=== PATIENT | female | born 1955 | race American Indian/Alaskan Native ===

== ENCOUNTER 2018-01-14 10:11 | Emergency (ER) | payer MEDICARE ==
[2018-01-14 10:28] LABS: Mean Corpuscular HGB Conc 26 % (30-34); Mean Corpuscular Volume 91 fl (79-97); Platelet Count 184 K/mm3 (140-440); Red Blood Count 2.73 M/mm3 (3.65-5.03)
[2018-01-14] MEDS ORDERED: NACL 0.9% 1000 ML 1,000 ML IV ONE ×3 (10:28→12:55)
[2018-01-14] MEDS ORDERED: APRESOLINE IV ONE (10:28)
--- NOTE | 2018-01-14 10:29 | Emergency Department Report ---
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 Per the patient's and son, the patient has experienced gastroenteritis-like symptoms for the past 2-3 days, including multiple episodes of, nausea, vomiting, and diarrhea. They stated that approximately 30 minutes prior to arrival the patient developed change in mental status from baseline and passed out. ED Past Medical Hx - Past Medical History Hx Hypertension: Yes (out of lisinopril 10 mg for one week) Hx CVA: Yes (12/2014 with left-sided weakness) Hx Congestive Heart Failure: No Hx Diabetes: Yes Hx Deep Vein Thrombosis: Yes Hx Seizures: Yes Hx Asthma: Yes Hx COPD: Yes - Surgical History Additional Surgical History: fibroid removed, brain surgery, metal plate in R arm, hysterectomy - Social History Smoking Status: Never Smoker Substance Use Type: Alcohol - Medications Home Medications: Home Medications Medication Instructions Recorded Confirmed Last Taken Type Insulin Regular, Human [HumuLIN R] 5 units SUB-Q ACHS 30 Days units 01/19/15 Unknown Rx Magnesium Oxide [Mag-Ox] 400 mg PO QDAY #30 tablet 01/19/15 10/19/15 Unknown Rx Lisinopril [Zestril TAB] 20 mg PO QDAY #60 tablet 10/19/15 Unknown Rx Hydrochlorothiazide [HCTZ] 25 mg PO QDAY #30 tablet 02/29/16 Unknown Rx Lisinopril [Zestril TAB] 10 mg PO QDAY #30 tablet 02/29/16 Unknown Rx Magnesium Oxide [Mag-Ox] 400 mg PO QDAY #7 tablet 02/29/16 Unknown Rx Potassium Chloride 20 meq PO QDAY #7 tablet.er 02/29/16 Unknown Rx amLODIPine [Norvasc] 5 mg PO DAILY #30 tab 02/29/16 Unknown Rx glipiZIDE [glipiZIDE ER] 5 mg PO QAM #30 tab.er.24 02/29/16 Unknown Rx levETIRAcetam [Keppra TAB] 250 mg PO DAILY #30 tablet 02/29/16 Unknown Rx ED Review of Systems ROS: Stated complaint: UNRESPONSIVE Other details as noted in HPI Comment: Unobtainable due to pts medical conditions Physical Exam - Physical Exam Physical Exam: General: poorly-nourished, well-developed Head: Normocephalic, atraumatic Eyes: normal sclera, left gave deviation, pupils equal, round, reactive to light ENT: Mucous membranes are pale and dry, gag reflex is intact Neck: trachea midline, neck supple, No neck stiffness, no cervical adenopathy Respiratory: Breath sounds equal bilaterally, no wheezing, rales, or rhonchi Cardio: S1 and S2 present, no murmurs, rubs, gallops, capillary refill is delayed Abdomen: Normoactive bowel sounds, soft abdomen, no rigidity or distension Chest WALL/Back: No tenderness to palpation of the chest wall, no CVA tenderness with percussion Musc: No pitting edema Skin: No rash Neuro: rt lower facial drooping, moaning, deviation of head to left, unable to assess sensation, reflexes 2+ and symmetric on DTR testing, spontaneously moving bilateral upper extremities, fingers and hands flexed Heme/lymph: no lymph node swelling ED Medical Decision Making - Lab Data Result diagrams: 01/14/18 10:11 01/14/18 11:06 - Medical Decision Making The patient was seen and examined by myself. The patient is placed on a cardiac technologist and continuous pulse ox. On initial evaluation, the patient was found to have decreased responsiveness, although responsive to painful stimuli, gave reflex intact, with left-sided gaze deviation, and significantly elevated blood pressure and heart rate. Evaluation orders were placed and the patient is given IV hydralazine for her elevated blood pressure and a normal saline fluid bolus for treatment of dehydration, hyperglycemia, and tachycardia. On return from CAT scan the patient's found to have twitching of the face and deviation of the head to the left, concerning for acute seizure. The patient is given 0.5 mg of Ativan and the patient's seizure-like activity promptly resolved. CT scan the head was negative for acute intracranial hemorrhage. As patient has a history of brain bleed, and recent hematemesis, the patient is not a candidate for TPA administration. Lab results reveal a pH of 7.14, anion gap of 16, low bicarbonate, WBC 19, lactic acid 15, hemoglobin 6.4, creatinine 2.5, potassium of 5, and glucose of 750. Lab results are consistent with DKA versus nonketotic hyperosmolar syndrome. The patient is administered IV Zosyn for coverage of potential infectious etiology, and insulin drip for treatment of hyperglycemia. On reevaluation patient's found to be hypotensive. Multiple fluid boluses are administered and multiple bedside assessments are performed to assess patient's responsiveness to fluids resuscitation. Plan to place a central line and start the patient on IV vasopressin. The family opted to make patient DNR. The on-call hospitalist service was contacted. They agreed to admit the patient for further treatment and close monitoring. The ED admit order was placed. The patient was admitted in guarded condition. Critical Care Time: Yes Critical care time in (mins) excluding proc time.: 35 Critical care attestation.: Due to the critical nature of this patients presentation, which necessitated multiple bedside assessments, manipulation and supportive measures to prevent further life threatening deterioration, I would like to bill for a total of 35 minutes of critical care time. This was exclusive of any separately billable procedures. Critical Care Time: 35 min ED Disposition Clinical Impression: Dehydration, Acute hyperkalemia, Seizure, Anemia requiring transfusions, Severe anemia, DARIN (acute kidney injury) Altered mental status Qualifiers: Altered mental status type: somnolence Qualified Code(s): R40.0 - Somnolence DKA (diabetic ketoacidoses) Qualifiers: Diabetes mellitus type: type 2 Diabetes mellitus complication detail: without coma Qualified Code(s): E11.10 - Type 2 diabetes mellitus with ketoacidosis without coma Disposition: OP ADMIT IP TO THIS HOSP Is pt being admited?: Yes Does the pt Need Aspirin: No (probable GI bleed & severe anemia) Condition: Critical Instructions: Diabetic Ketoacidosis (ED) Referrals: PRIMARY CARE, [Primary Care Provider] - 3-5 Days Time of Disposition: 11:32 - Assessment Assessment Interval: Baseline - Level of Consciousness 1a. Level of Consciousness: not alert, rep stimuli - LOC Questions 1b. LOC Questions: answers no questions correctly - LOC Command 1c. LOC Commands: performs no tasks correctly - Best Gaze 2. Best Gaze: forced deviation - Visual 3. Visual: no visual loss - Facial Palsy 4. Facial Palsy: partial paralysis - Motor Arm 5b. Motor Arm Right: no movement 5a. Motor Arm Left: no movement - Motor Leg 6a. Motor Leg Left: no movement 6b. Motor Leg Right: no movement - Limb Ataxia 7. Limb Ataxia: present 2 limbs - Sensory 8. Sensory: severe/total sensory loss - Best Language 9. Best Language: mute/global aphasia - Dysarthria 10. Dysarthria: intubated or other barrier - Extinction and Inattention 11. Extinction/Inattention: profound inattention
[2018-01-14 10:30] LABS: Hematocrit 24.9 % (30.3-42.9); Hemoglobin 6.4 gm/dl (10.1-14.3); Mean Corpuscular Hemoglobin 23 pg (28-32); Red Cell Distribution Width 20.2 % (13.2-15.2)
[2018-01-14 10:32] LABS: INR 2.02 (0.87-1.13)
[2018-01-14 10:34] LABS: Calcium 10.7 mg/dL (8.4-10.2)
[2018-01-14] MEDS ORDERED: ATIVAN ONE (10:50)
[2018-01-14] MEDS ORDERED: KEPPRA 1,000 MG/NS 0.75% 100ML 1,000 MG/100 ML BAG IV ONE ×2 (10:56→11:02)
--- NOTE | 2018-01-14 10:56 | Cat Scan Report ---
FINAL REPORT EXAM: CT HEAD/BRAIN WO CON HISTORY: neuro deficits < 6hrs or sx present upon awakening TECHNIQUE: CT of the Head without IV contrast. PRIORS: CT head February 29, 2016. FINDINGS: Ill-defined area decreased attenuation in the left frontal parietal lobe along the MCA distribution suggests acute/subacute ischemia. Other areas of more well-defined decreased attenuation may represent smaller chronic ischemia. No dense MCA sign identified. Small chronic ischemic changes in both basal ganglias. There is no hemorrhage. There is no midline shift. There is no hydrocephalus. There is no mass. Age appropriate white-white matter attenuation is noted. There is no calvarial fracture. Left calvarial craniotomy, calvarial plates, and lita holes identified. The temporal bones demonstrate aerated mastoid air cells. The middle ears appear unremarkable. Paranasal sinuses are unremarkable. Globes are intact. IMPRESSION: Suspect acute and subacute ischemia in the left MCA territory. Further imaging with MRI with or without contrast may be helpful clinically indicated. Chronic ischemic disease January 14, 2018 at 0750 PST: I discussed the findings over phone with Dr. Urias.
[2018-01-14 10:57] LABS: Chol/HDL Ratio 4.69 %
[2018-01-14] MEDS ORDERED: ATIVAN IV ONE (11:01)
[2018-01-14] MEDS ORDERED: SODIUM BICARBONATE IV ONE ×2 (11:02→12:00)
[2018-01-14] MEDS ORDERED: D50W (25GM) Syringe IV PRN (11:03)
[2018-01-14 11:12] LABS: Albumin 2.9 g/dL (3.9-5); Bilirubin,Direct 0.3 mg/dL (0-0.2)
[2018-01-14] MEDS ORDERED: NACL 0.9% 500 ML 500 ML IV ONE (11:35)
[2018-01-14 11:37] LABS: Calcium 9.4 mg/dL (8.4-10.2)
[2018-01-14 11:42] LABS: Basophils % (Manual) 0 % (0.0-1.8); Eosinophils % (Manual) 0 % (0.0-4.3); Total Cells Counted 100
[2018-01-14 11:43] LABS: Anisocytosis 1+; Hypochromasia 1+
[2018-01-14 11:50] LABS: Bacteria,Urine 1+ /HPF (Negative); Bilirubin,Urine NEG (Negative); Blood,Urine SM (Negative); Color,Urine Yellow (Yellow); Mucus,Urine FEW /HPF; Protein,Urine <15 mg/dL mg/dL (Negative); Urobilinogen,Urine < 2.0 mg/dL (<2.0)
[2018-01-14] MEDS ORDERED: PROTONIX 80 MG in NACL 0.9% 100 ML IV SCH (12:00)
[2018-01-14] MEDS ORDERED: NovoLIN R 100 UNITS in NACL 0.9% 99 ML IV SCH (12:00)
[2018-01-14] MEDS ORDERED: PROTONIX IV ONE (12:00)
[2018-01-14] MEDS ORDERED: NS/KCL 20MEQ 20 MEQ/1,000 ML BAG IV SCH (12:00)
--- NOTE | 2018-01-14 12:49 | XRay Report ---
AP CHEST: HISTORY: chest pain AP view of the chest demonstrates a normal mediastinal and cardiac contour with clear lungs and normal bony and soft tissue structures. IMPRESSION: Unremarkable AP chest.
--- NOTE | 2018-01-14 12:52 | History and Physical Report ---
History of Present Illness Chief complaint: She wont wake up History of present illness: 62 YO Female with HTN, CVA LHP, DM, DVT on therapeutic anticoagulation, Seizure Disorder, DM, Asthma, COPD presents to ED for evaluation. Pt is stuporous and unable to provide history. Pt history taken from , who is at bedside during exam and interview. As per , the patient has experienced gastroenteritis-like symptoms for the past 2-3 days, including multiple episodes of, nausea, vomiting, and diarrhea. In addition, the patient has become increasingly confused over the past 1 day, and subsequently passed out. No reports of fever, chills, CP, Palpitations, Trauma, or recent ill contacts. EMS noticied and patient transported to [facility] for evaluation. Pt seen and evaluated in ED and found to have septic shock, DKA with sever metabolic acidosis, complicated by acute renal failure. Pt found to have poor prognosis, and was pending intubation for acute respiratory failure. Pt was initially admitted to ICU. Pt family informed of poor prognosis. Pt family elects to make patient DNR . Hospice consulted. Past History Past Medical History: COPD, diabetes, DVT, hypertension, seizures, stroke Past Surgical History: hysterectomy, Other (brain surgery, fibroid) Social history: single. denies: smoking, alcohol abuse, prescription drug abuse Family history: diabetes, hypertension Medications and Allergies Allergies Allergy/AdvReac Type Severity Reaction Status Date / Time codeine AdvReac Vomiting Verified 01/14/18 14:09 Home Medications Medication Instructions Recorded Confirmed Last Taken Type Insulin Regular, Human [HumuLIN R] 5 units SUB-Q ACHS 30 Days units 01/19/15 Unknown Rx Magnesium Oxide [Mag-Ox] 400 mg PO QDAY #30 tablet 01/19/15 10/19/15 Unknown Rx Lisinopril [Zestril TAB] 20 mg PO QDAY #60 tablet 10/19/15 Unknown Rx Hydrochlorothiazide [HCTZ] 25 mg PO QDAY #30 tablet 02/29/16 Unknown Rx Lisinopril [Zestril TAB] 10 mg PO QDAY #30 tablet 02/29/16 Unknown Rx Magnesium Oxide [Mag-Ox] 400 mg PO QDAY #7 tablet 02/29/16 Unknown Rx Potassium Chloride 20 meq PO QDAY #7 tablet.er 02/29/16 Unknown Rx amLODIPine [Norvasc] 5 mg PO DAILY #30 tab 02/29/16 Unknown Rx glipiZIDE [glipiZIDE ER] 5 mg PO QAM #30 tab.er.24 02/29/16 Unknown Rx levETIRAcetam [Keppra TAB] 250 mg PO DAILY #30 tablet 02/29/16 Unknown Rx Active Meds: Active Medications Dextrose (D50w (25gm) Syringe) 0 ml IV PRN PRN PRN Reason: Hypoglycemia Insulin Human Regular 100 (units/ Sodium Chloride) 100 mls @ 1 mls/hr IV TITR CECI; Protocol Pantoprazole Sodium 80 mg/ (Sodium Chloride) 100 mls @ 10 mls/hr IV Q10H CECI Potassium Chloride/Sodium Chloride (Ns/Kcl 20meq) 20 meq in 1,000 mls @ 150 mls /hr IV DIRECT CECI Review of Systems ROS unobtainable: due to mental status Exam - Constitutional Vitals: Temp Pulse Resp BP Pulse Ox 82 12 71/43 100 01/14/18 12:30 01/14/18 12:30 01/14/18 12:30 01/14/18 12:30 General appearance: Present: severe distress - EENT Eyes: Present: miosis ENT: no poor dentition - Neck Neck: Present: supple, normal ROM - Respiratory Respiratory effort: labored Respiratory: bilateral: diminished - Cardiovascular Heart Sounds: Present: S1 & S2. Absent: rub, click - Extremities Extremities: pulses symmetrical, No edema Peripheral Pulses: abnormal (capillary refill greater than 3.6 seconds) - Abdominal General gastrointestinal: Present: soft, non-tender, non-distended, normal bowel sounds Female genitourinary: Present: normal - Integumentary Integumentary: Present: clear, dry, clammy - Musculoskeletal Musculoskeletal: generalized weakness - Psychiatric Psychiatric: no intact judgment & insight, no memory intact - Neurologic Neurologic: focal deficits, no gait normal Results - Labs CBC & Chem 7: 01/14/18 10:11 01/14/18 12:59 Labs: Abnormal lab results 01/14/18 01/14/18 01/14/18 Range/Units 10:11 10:11 10:11 WBC 19.0 H (4.5-11.0) K/mm3 RBC 2.73 L (3.65-5.03) M/mm3 Hgb 6.4 L (10.1-14.3) gm/dl Hct 24.9 L (30.3-42.9) % MCH 23 L (28-32) pg MCHC 26 L (30-34) % RDW 20.2 H (13.2-15.2) % Lymphocytes % (Manual) 51.0 H (13.4-35.0) % Seg Neutrophils # Man 8.6 H (1.8-7.7) K/mm3 Lymphocytes # (Manual) 9.7 H (1.2-5.4) K/mm3 PT 24.2 H (12.2-14.9) Sec. INR 2.02 H (0.87-1.13) Thrombin Time (15.1-19.6) Sec. POC ABG pH (7.35-7.45) POC ABG pCO2 (35-45) POC ABG pO2 (80-105) Sodium 131 L (137-145) mmol/L Potassium (3.6-5.0) mmol/L Chloride 67.5 L (98-107) mmol/L Carbon Dioxide 7 L* (22-30) mmol/L BUN 45 H (7-17) mg/dL Creatinine 2.6 H (0.7-1.2) mg/dL Glucose 749 H* (65-100) mg/dL Lactic Acid (0.7-2.0) mmol/L Calcium 10.7 H (8.4-10.2) mg/dL Phosphorus (2.5-4.5) mg/dL Magnesium (1.7-2.3) mg/dL Direct Bilirubin (0-0.2) mg/dL AST (5-40) units/L Troponin T 0.063 H (0.00-0.029) ng/mL Albumin (3.9-5) g/dL HDL Cholesterol 23 L (40-59) mg/dL Lipase (13-60) units/L Crossmatch 01/14/18 01/14/18 01/14/18 Range/Units 10:11 10:11 10:26 WBC (4.5-11.0) K/mm3 RBC (3.65-5.03) M/mm3 Hgb (10.1-14.3) gm/dl Hct (30.3-42.9) % MCH (28-32) pg MCHC (30-34) % RDW (13.2-15.2) % Lymphocytes % (Manual) (13.4-35.0) % Seg Neutrophils # Man (1.8-7.7) K/mm3 Lymphocytes # (Manual) (1.2-5.4) K/mm3 PT (12.2-14.9) Sec. INR (0.87-1.13) Thrombin Time 23.6 H (15.1-19.6) Sec. POC ABG pH 7.146 L (7.35-7.45) POC ABG pCO2 16.2 L (35-45) POC ABG pO2 290 H (80-105) Sodium (137-145) mmol/L Potassium (3.6-5.0) mmol/L Chloride (98-107) mmol/L Carbon Dioxide (22-30) mmol/L BUN (7-17) mg/dL Creatinine (0.7-1.2) mg/dL Glucose (65-100) mg/dL Lactic Acid (0.7-2.0) mmol/L Calcium (8.4-10.2) mg/dL Phosphorus (2.5-4.5) mg/dL Magnesium (1.7-2.3) mg/dL Direct Bilirubin 0.3 H (0-0.2) mg/dL AST 83 H (5-40) units/L Troponin T (0.00-0.029) ng/mL Albumin 2.9 L (3.9-5) g/dL HDL Cholesterol (40-59) mg/dL Lipase 111 H (13-60) units/L Crossmatch 01/14/18 01/14/18 01/14/18 Range/Units 10:42 11:06 11:06 WBC (4.5-11.0) K/mm3 RBC (3.65-5.03) M/mm3 Hgb (10.1-14.3) gm/dl Hct (30.3-42.9) % MCH (28-32) pg MCHC (30-34) % RDW (13.2-15.2) % Lymphocytes % (Manual) (13.4-35.0) % Seg Neutrophils # Man (1.8-7.7) K/mm3 Lymphocytes # (Manual) (1.2-5.4) K/mm3 PT (12.2-14.9) Sec. INR (0.87-1.13) Thrombin Time (15.1-19.6) Sec. POC ABG pH (7.35-7.45) POC ABG pCO2 (35-45) POC ABG pO2 (80-105) Sodium (137-145) mmol/L Potassium (3.6-5.0) mmol/L Chloride (98-107) mmol/L Carbon Dioxide (22-30) mmol/L BUN (7-17) mg/dL Creatinine (0.7-1.2) mg/dL Glucose (65-100) mg/dL Lactic Acid 15.50 H* (0.7-2.0) mmol/L Calcium (8.4-10.2) mg/dL Phosphorus 6.70 H (2.5-4.5) mg/dL Magnesium 2.60 H (1.7-2.3) mg/dL Direct Bilirubin (0-0.2) mg/dL AST (5-40) units/L Troponin T (0.00-0.029) ng/mL Albumin (3.9-5) g/dL HDL Cholesterol (40-59) mg/dL Lipase (13-60) units/L Crossmatch 01/14/18 01/14/18 01/14/18 Range/Units 11:06 11:40 11:59 WBC (4.5-11.0) K/mm3 RBC (3.65-5.03) M/mm3 Hgb (10.1-14.3) gm/dl Hct (30.3-42.9) % MCH (28-32) pg MCHC (30-34) % RDW (13.2-15.2) % Lymphocytes % (Manual) (13.4-35.0) % Seg Neutrophils # Man (1.8-7.7) K/mm3 Lymphocytes # (Manual) (1.2-5.4) K/mm3 PT (12.2-14.9) Sec. INR (0.87-1.13) Thrombin Time (15.1-19.6) Sec. POC ABG pH (7.35-7.45) POC ABG pCO2 (35-45) POC ABG pO2 (80-105) Sodium (137-145) mmol/L Potassium 2.9 L* D (3.6-5.0) mmol/L Chloride 75.6 L (98-107) mmol/L Carbon Dioxide 6 L* (22-30) mmol/L BUN 43 H (7-17) mg/dL Creatinine 2.5 H (0.7-1.2) mg/dL Glucose 659 H* (65-100) mg/dL Lactic Acid 16.40 H* (0.7-2.0) mmol/L Calcium (8.4-10.2) mg/dL Phosphorus (2.5-4.5) mg/dL Magnesium (1.7-2.3) mg/dL Direct Bilirubin (0-0.2) mg/dL AST (5-40) units/L Troponin T (0.00-0.029) ng/mL Albumin (3.9-5) g/dL HDL Cholesterol (40-59) mg/dL Lipase (13-60) units/L Crossmatch See Detail Assessment and Plan - Patient Problems (1) Sepsis Current Visit: Yes Status: Acute Qualifiers: Sepsis type: sepsis due to unspecified organism Qualified Code(s): A41.9 - Sepsis, unspecified organism Plan to address problem: Sepsis protocol: IV abx, IVF, monitor uop q shift, serial lactic acid, pressor support. Supportive care. Pt has poor prognosis. The high probability of a clinically significant, sudden or life threatening deterioration of the [cardiac, pulmonary, renal, endocrine] system(s) required my full and direct attention, intervention and personal management. The aggregate critical care time was [65] minutes. This time is in addition to time spent performing reported procedures but includes the following: [x] Data Review and interpretation [x] Patient assessment and monitoring of vital signs [x] Documentation [x] Medication orders and management (2) DARIN (acute kidney injury) Current Visit: Yes Status: Acute Plan to address problem: IVF resuscitation, monitor uop q shift, (3) DKA (diabetic ketoacidoses) Current Visit: Yes Status: Acute Qualifiers: Diabetes mellitus type: type 2 Diabetes mellitus complication detail: with coma Qualified Code(s): E11.11 - Type 2 diabetes mellitus with ketoacidosis with coma Plan to address problem: Insulin drip, IVF resuscitation, monitor uop q shift, serial bmp, anion gap (4) Seizure Current Visit: Yes Status: Acute Plan to address problem: AED, continue medical management. (5) Acute respiratory failure Current Visit: Yes Status: Acute Plan to address problem: Pt family declined intubation, NIPPV. Will treat with supplemental oxygen, and pain control (6) DVT prophylaxis Current Visit: Yes Status: Acute
[2018-01-14] MEDS ORDERED: LEVOPHED DRIP 4 MG/NS 250 ML 4 MG/250 ML BAG IV SCH (13:00)
[2018-01-14 13:31] LABS: Calcium 7.7 mg/dL (8.4-10.2)
[2018-01-14] MEDS: ZOSYN/NS 3.375GM/50ML 3.375 GM/50 ML BAG IV SCH ×2 (15:58→18:34)
[2018-01-14] MEDS ORDERED: NACL 0.9% 1000 ML 1,000 ML ONE (15:58)
[2018-01-14 18:39] VITALS: BP 92/57
== END 2018-01-14 18:20 | disposition admitted as inpatient to this hospital (09) ==
LOC: ED 10:11
DX: E87.5 Hyperkalemia (principal); E86.0 Dehydration; S37.009A Unspecified injury of unspecified kidney, initial encounter; E11.10 Type 2 diabetes mellitus with ketoacidosis without coma; D64.89 Other specified anemias; I10 Essential (primary) hypertension; R56.9 Unspecified convulsions; J44.9 Chronic obstructive pulmonary disease, unspecified; Z86.73 Personal history of transient ischemic attack (TIA), and cerebral infarction without residual deficits; Z90.710 Acquired absence of both cervix and uterus; Z88.5 Allergy status to narcotic agent; X58.XXXA Exposure to other specified factors, initial encounter; Y93.89 Activity, other specified; Y99.8 Other external cause status; Y92.89 Other specified places as the place of occurrence of the external cause
CPT/HCPCS: 36415; 70450; 71045; 80048; 80061; 80074; 81001; 82140; 82550; 82803; 82962; 83690; 83735; 83880; 84100; 84484; 85007; 85025; 85610; 85670; 85730; 86850; 86900; 86901; 86920; 93005; 93010; 96361; 96365; 96366; 96367; 96375; 96376; 99291; J0360; J1953; J2060; J7030; C9113; J1815; J2543